=== PATIENT | female | born 1985 | race Caucasian/White ===

== ENCOUNTER 2021-04-06 13:13 | Emergency (ER) | payer OTHER ==
[~2021-04-06] VITALS: Ht 157.5 cm; Wt 63.5 kg
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
[2021-04-06] MEDS ORDERED: ABILIFY 5 MG TAB5 MG PO (13:23)
[2021-04-06 13:29] VITALS: BP 132/72
== END 2021-04-06 13:29 | disposition home or self-care (01) ==
LOC: M.ERS 13:13
DX: S00.83XA Contusion of other part of head, initial encounter (principal); F41.9 Anxiety disorder, unspecified; Z79.899 Other long term (current) drug therapy; V89.2XXA Person injured in unspecified motor-vehicle accident, traffic, initial encounter; Y93.I9 Activity, other involving external motion; Y92.488 Other paved roadways as the place of occurrence of the external cause; Y99.8 Other external cause status